=== PATIENT | female | born 1955 | race Caucasian/White ===

== ENCOUNTER 2022-03-19 14:35 | Emergency (ER) | payer OTHER, SELFPAY | END 2022-03-19 16:03 | disposition home or self-care (01) | LOC: NAV ERS 14:35 | DX: S00.83XA Contusion of other part of head, initial encounter (principal); W01.0XXA Fall on same level from slipping, tripping and stumbling without subsequent striking against object, initial encounter | CPT/HCPCS: 70450 ==